=== PATIENT | female | born 1945 | race Caucasian/White ===

== ENCOUNTER → 2017-11-21 | Outpatient (CLI) | payer MEDICARE, BC ==
[~2017-11-21] MED LIST: ESTRADIOL1 MG PO; FLEXERIL PO; IBUPROFEN200 MG PO; KENALOG-4040 MG/1 ML; LEVOTHYROXINE50 MCG PO; LISINOPRIL10 MG PO; MAGNESIUM PO; METOPROLOL TART25 MG PO; POTASSIUM PO; ULTRAM 50MG50 MG PO; VITAMIN B12 PO; VITAMIN D32000 UNIT PO; ZYRTEC-D TABLE1 EACH PO; [UNRECOGNIZED DRUG - OTHER] PO
== END ==
LOC: CARD 08:25
PROVIDERS: ATTEND Internal Medicine
DX: G25.81 Restless legs syndrome (principal)
CPT/HCPCS: 93925

== ENCOUNTER → 2017-11-25 | Day surgery (SDC) | payer MEDICARE, BC ==
[2017-11-22 16:32] LABS: BASOPHILS # (AUTO) 0.1 (0.0-0.1); BASOPHILS % 0.6 % (0.0-1.0); EOSINOPHILS # (AUTO) 0.1 (0.0-0.4); EOSINOPHILS % 0.6 % (0.0-6.0); HEMATOCRIT 42.9 % (34.2-44.1); HEMOGLOBIN 14.6 g/dL (12.0-16.0); LYMPHOCYTES # (AUTO) 2.5 (1.0-3.2); LYMPHOCYTES % 31.3 % (18.0-39.1); MEAN CORPUSCULAR HEMOGLOBIN 33.6 pg (28-32); MEAN CORPUSCULAR VOLUME 98.6 fL (81-99); MONOCYTES # (AUTO) 0.6 (0.2-0.8); MONOCYTES % 7.2 % (4.4-11.3); NEUTROPHILS # (AUTO) 4.8 (2.1-6.9); NEUTROPHILS % 60.1 % (38.7-80.0); PLATELET COUNT 277 x10e3/uL (140-360); RED BLOOD COUNT 4.35 x10e6/uL (3.6-5.1); RED CELL DISTRIBUTION WIDTH 13.4 % (11.7-14.4)
[~2017-11-25] MED LIST changes: +FENTANYL CITRATE/PF 100MCG/2 ML INJ ONE; +HYOSCYAMINE SULFATE 0.5 MG/ML AMP ONE; +LIDOCAINE HCL 2% LOCAL INJ 5 ML SDV VIAL INJ ONE; +MIDAZOLAM HCL 2 MG/2 ML VIAL ONE; +PROPOFOL IV EMULSION 10 MG/ML 50 ML VIAL ONE
[2017-11-25 09:46] LABS: WBC,FECAL (FECAL LACTOFERRIN) NEGATIVE (NEGATIVE)
--- NOTE | 2017-11-25 10:11 | Operative Report ---
DATE OF PROCEDURE: November 25, 2017 REFERRING PHYSICIAN: Dr. Phil Villela. PROCEDURES PERFORMED 1. Esophagogastroduodenoscopy with biopsies. 2. Colonoscopy with polypectomy. INDICATIONS FOR EGD: Upper abdominal pain, nausea, and heartburn. INDICATIONS FOR COLONOSCOPY: Colorectal cancer screening, personal history of colon polyps, and diarrhea. MEDICATION: Patient was done under MAC. Please see anesthesiologist's note. PROCEDURE: With patient in lateral decubitus position, flexible fiberoptic Olympus gastroscope was introduced into the esophagus under direct visualization without any difficulty. There was some patchy erythema noted in distal esophagus. Some focal nodularity and some friability was noted at the GE junction that was biopsied. The scope was then advanced with ease into the stomach and mucosa overlying the antrum and the body revealed some patchy erythema and low-grade to moderate edema, and biopsies were obtained and sent to stain for H. pylori. Pylorus appeared to be of normal contour and shape. It was intubated with ease and the scope was advanced all the way to the 2nd portion of the duodenum. The scope was then withdrawn slowly. Mucosa overlying the proximal 2nd portion and the duodenal bulb appeared to be within normal limits. Biopsies were obtained from the proximal 2nd portion to rule out sprue considering patient's history of diarrhea. The scope was then withdrawn back into the stomach and retroflexed. The mucosa overlying the fundus and the cardia appeared to be within normal limits. The scope was then straightened out. The stomach was decompressed. The scope was subsequently withdrawn. Patient tolerated the procedure well. IMPRESSIONS 1. Distal esophagitis. 2. Focal nodularity and friability, gastroesophageal junction, biopsied. 3. Gastritis, biopsied. Biopsies sent to stain for Helicobacter pylori. 4. Rule out sprue. PLAN 1. Follow up histology. 2. Initiate Protonix 40 mg 1 p.o. q.a.m. a.c. Patient was then turned around. After adequate lubrication of the anal canal, flexible fiberoptic Olympus colonoscope was inserted into the rectum with ease and advanced all the way to the cecum. Mucosa overlying the cecum appeared to be within normal limits. The ileocecal valve was intubated and the scope was advanced into the terminal ileum. Biopsies were obtained. The scope was then withdrawn back into the colon. It was then withdrawn slowly. Mucosa overlying the ascending and the transverse grossly appeared to be within normal limits. Two polyps were hot biopsied from the descending colon. There were some patchy areas of erythema and low-grade edema noted in the left colon. Random biopsies were obtained. Diverticular disease was noted to involve the sigmoid colon. Two polyps were hot biopsied from the sigmoid colon. The rectum appeared to be within normal limits. The scope was then retroflexed into the distal rectum and small internal hemorrhoids were noted, none of which was actively bleeding. The scope was then straightened out. The rectosigmoid area as well as the distal rectal area were decompressed. The scope was subsequently withdrawn after securing an adequate stool specimen that was sent for the appropriate stool studies. Patient tolerated the procedure well. IMPRESSIONS 1. Descending colon polyp times 2, hot biopsied. 2. Mild patchy segmental colitis, left colon. 3. Diverticulosis. 4. Sigmoid colon polyp times 2, hot biopsied. 5. Small internal hemorrhoids, none actively bleeding. PLAN 1. Follow up histology. 2. Follow up stool studies. 3. Initiate VSL #3 DS 1 p.o. daily, Bentyl 10 mg 1 p.o. t.i.d. 4. Patient will need followup colonoscopy in 3 to 5 years. Job#: [id number] CF cc:PHIL VILLELA MD
[2017-11-25 14:52] LABS: C DIFFICILE TOXIN A&B AMP PROB NEGATIVE (NEGATIVE)
--- OUTSIDE RECORDS SUMMARY | 2017-11-27 11:27 | XMS REPORT ---
Author Author [facility] Address Unknown Phone Unavailable Care Team Providers Care Environmental Compliance Manager Name Role Phone MAGNUS VILLELA Unavailable Unavailable Problems This patient has no known problems. Allergies, Adverse Reactions, Alerts This patient has no known allergies or adverse reactions. Medications This patient has no known medications. Results Test Description Test Time Test Comments Text Results Atomic Results Result Comments MRI SPINE LUMBAR WO [place] [address] Patient Name: DEONTE CASTILLO MR #: [id number] : 1945 Age/Sex: 71/F Req #: [id number] [facility] Physician: Ordered by: MAGNUS VILLELA MD Report #: [id number] Location: MRI Room/Bed: Procedure: [id number] MRI/MRI SPINE LUMBAR WO Exam Date: 07/10/17 Exam Time: 0815 REPORT STATUS: Signed Examination: MRI SPINE LUMBAR WITHOUT CONTRAST History: 71-year-old female with low back pain radiating down the right lower extremity. Right lumbar radiculopathy. Comparison studies: None Technique: Sagittal, coronal and axial T2 , sagittal T1 and STIR; axial spin density oblique. Findings: Number of lumbar vertebral bodies: Five. Alignment: Normal lordosis. No scoliosis. Soft tissues: No T2 hyperintense inflammatory changes. Posterior paraspinal soft tissues and muscles: No abnormality. Lower thoracic cord: Normal in signal and morphology. The tip of the conus is at T12-L1. Cauda equina: No masses. No arachnoiditis. Vertebrae: No fractures, infection or neoplasm. Degenerative changes: L1-L2: No abnormalities. L2-L3: No abnormalities. L3-L4: Grade I anterolisthesis without pars defect. Diffuse disc bulge and mild bilateral facet arthropathy. No foraminal or canal stenosis. L4-L5: Asymmetric to the left disc bulge with left central and subarticular disc protrusion and moderate bilateral facet arthropathy with a small left facet joint effusion result in severe left lateral recess narrowing with impingement of the descending left L5 nerve root and mild left foraminal narrowing. No canal stenosis. L5-S1: No abnormalities. IMPRESSION: 1. Degenerative changes at L3-L4 and L4- L5 with severe left lateral recess narrowing at L4-L5 resulting in impingement of the descending left L5 nerve root. 2. No canal or significant foraminal (not moderate or severe) stenosis. Signed by: Dr. Marjan Busby M.D. on 07/11/2017 10:26 AM Dictated By: MARJAN VERDE MD [id number] COPY TO: MAGNUS VILLELA MD
== END | disposition home or self-care (01) ==
LOC: OR 06:03
PROVIDERS: ATTEND Internal Medicine Gastroenterology
DX: Z12.11 Encounter for screening for malignant neoplasm of colon (principal); K63.5 Polyp of colon; K29.70 Gastritis, unspecified, without bleeding; K50.10 Crohn's disease of large intestine without complications; K21.0 Gastro-esophageal reflux disease with esophagitis; K57.30 Diverticulosis of large intestine without perforation or abscess without bleeding; K64.8 Other hemorrhoids; I10 Essential (primary) hypertension; F41.9 Anxiety disorder, unspecified; F32.9 Major depressive disorder, single episode, unspecified; Z01.810 Encounter for preprocedural cardiovascular examination; Z01.812 Encounter for preprocedural laboratory examination
CPT/HCPCS: 36415; 43239; 45384; 83630; 83993; 85025; 87045; 87177; 87328; 87493; 88305; 88312; 93005; J1980; J2001; J2250; 45380

== ENCOUNTER → 2018-01-11 | Outpatient (CLI) | payer MEDICARE, BC ==
[~2018-01-11] MED LIST changes: -FENTANYL CITRATE/PF 100MCG/2 ML INJ ONE; -HYOSCYAMINE SULFATE 0.5 MG/ML AMP ONE; -LIDOCAINE HCL 2% LOCAL INJ 5 ML SDV VIAL INJ ONE; -MIDAZOLAM HCL 2 MG/2 ML VIAL ONE; -PROPOFOL IV EMULSION 10 MG/ML 50 ML VIAL ONE; +SINCALIDE 3 MCG/VIAL INJ ONE
--- NOTE | 2018-01-11 09:24 | Diagnostic Imaging Report ---
PROCEDURE:US ABDOMEN LIMITED COMPARISON:None. INDICATIONS:RUQ Pain TECHNIQUE: Betancourt-scale and color doppler transverse and longitudinal images of the right upper quadrant of the abdomen were obtained. FINDINGS: Liver: 13.5 cm in right mid-clavicular line. Normal parenchymal echogenicity. Well-circumscribed hyperechoic lesion in the right lobe of the liver, near the dome measuring 0.8 x 0.8 x 1 cm. No internal vascularity by color Doppler analysis. Main portal vein: 0.8 cm in caliber. Hepatopedal flow. Gallbladder: Multiple shadowing calculi are identified, without wall thickening or pericholecystic fluid. Common Bile Duct: 0.3 cm in caliber. Sonographic Mccartney's sign: Reported as negative. Right kidney: 9 cm in length. Normal renal cortical echogenicity. No solid masses or hydronephrosis. Pancreas: The visualized portions are unremarkable. Inferior vena cava: Patent Aorta: Non-aneurysmal Ascites: None in the right upper quadrant of the abdomen. CONCLUSION: Cholelithiasis without sonographic evidence of acute cholecystitis. 1 cm hyperechoic lesion in the right lobe of the liver most likely represents a hemangioma. Definitive characterization with MRI or CT of the abdomen with and without contrast (liver mass protocol) is suggested. Dictated by: Alejandro Rosario M.D. on 01/11/2018 at 9:25 Electronically approved by: Alejandro Rosario M.D. on 01/11/2018 at 9:25
--- NOTE | 2018-01-11 20:04 | Diagnostic Imaging Report ---
Hepatobiliary Scan with Gallbladder Ejection Fraction Clinical information: 72 F with chronic RUQ abdominal pain Report: Following intravenous administration of 6.5 millicuries of Tc-99m mebrofenin, dynamic images of the abdomen in the anterior projection were obtained through 50 minutes. Sincalide (CCK analog) 1.7 micrograms was administered intravenously over 30 minutes with additional imaging for determination of gallbladder ejection fraction. Perfusion to the liver is normal. Extraction of tracer from the blood pool by the liver parenchyma is normal. Tracer is seen promptly within the biliary tract. The gallbladder begins to fill by 18 minutes post-injection of tracer and fills adequately. Tracer is seen in the small bowel by 12 minutes. The gallbladder ejection fraction with administration of sincalide is 75% (normal greater than 40%). Impression: 1. Filling of the gallbladder excludes the diagnosis of acute cystic duct obstruction/acute cholecystitis. 2. Normal gallbladder ejection fraction of 75% does not support the clinical diagnosis of chronic cholecystitis/gallbladder dyskinesia. Signed by: Dr. Leigha Nicole M.D. on 01/11/2018 8:00 PM
== END ==
LOC: US 08:26
PROVIDERS: ATTEND Internal Medicine Gastroenterology
DX: R10.11 Right upper quadrant pain (principal)
CPT/HCPCS: 76705; 78227; A9537; J2805

== ENCOUNTER → 2018-01-18 | Outpatient (CLI) | payer MEDICARE, BC ==
[~2018-01-18] MED LIST changes: +GADOBENATE DIMEGLUMINE 1 ML IV ONE; -SINCALIDE 3 MCG/VIAL INJ ONE
[2018-01-18 10:03] LABS: CREATININE, SERUM 1.02 mg/dL (0.57-1.11)
--- NOTE | 2018-01-18 11:54 | Diagnostic Imaging Report ---
PROCEDURE: MRI ABDOMEN WOW TECHNIQUE: Multisequence, multiplanar MRI of the abdomen before and after the intravenous administration of 15 mL of Multihance gadolinium contrast. Axial and coronal T2-weighted images were performed with and without fat suppression. Axial T1 weighted and T1 weighted opposed phase images were obtained. Diffusion weighted images and dynamic, post contrast, 3-D GRE images were also obtained. COMPARISON: None. INDICATIONS: Right-sided abdominal pain FINDINGS: LIVER: No hepatic signal abnormality. There is an 8 mm lesion in segment V/ of the liver) which enhances to a lesser degree than the surrounding liver parenchyma on all phases of contrast administration. There may be mild centripetal filling. This lesion is associated with faint diffusion restriction and is moderately hyperintense on T2 weighted images of the present series 5, image 21). No other focal liver lesions are identified. BILIARY: There are multiple stones in the gallbladder. No gallbladder wall thickening. No ductal dilatation or filling defect. PANCREAS: No mass or ductal dilatation. SPLEEN: No splenomegaly. ADRENALS: No nodules. KIDNEYS: No hydronephrosis or mass in the imaged portion of the kidneys. Tiny nonenhancing lesion in the interpolar region of the right kidney (series 11 image 185) is not well-seen on T2-weighted images and may represent a hemorrhagic or proteinaceous cyst. PERITONEUM / RETROPERITONEUM: No upper abdominal free fluid. LYMPH NODES: No upper abdominal lymphadenopathy. VESSELS: Unremarkable. BONES AND SOFT TISSUES: Unremarkable. IMPRESSION: 1. There is an 8mm lesion in the right hepatic lobe which probably corresponds to the finding on recent ultrasound. It is indeterminate on the basis of this MRI and may represent a benign sclerosing hemangioma. Because of the uncertainty, consider a followup ultrasound in 6 months to ensure stability of this lesion. 2. Cholelithiasis without evidence of cholecystitis or biliary ductal dilatation. Dictated by: Itz Cutler M.D. on 01/18/2018 at 11:55 Electronically approved by: Itz Cutler M.D. on 01/18/2018 at 11:55
== END ==
LOC: MRI 08:28
PROVIDERS: ATTEND Internal Medicine Gastroenterology
DX: R16.0 Hepatomegaly, not elsewhere classified (principal)
CPT/HCPCS: 36415; 74183; 82565; 84520

== ENCOUNTER 2018-07-11 10:00 | Outpatient (RCR) | payer MEDICARE, BC ==
[~2018-07-11 10:00] MED LIST changes: -GADOBENATE DIMEGLUMINE 1 ML IV ONE
== END 2018-07-18 ==
LOC: PT 10:00
PROVIDERS: ATTEND Specialist
DX: M70.61 Trochanteric bursitis, right hip (principal); M25.551 Pain in right hip; M25.651 Stiffness of right hip, not elsewhere classified; M62.81 Muscle weakness (generalized)
CPT/HCPCS: 97110 ×3; 97162; G8978; G8979

== ENCOUNTER 2018-08-06 10:59 | Outpatient (RCR) | payer MEDICARE, BC | END 2018-08-17 | LOC: PT 10:59 | PROVIDERS: ATTEND Specialist | DX: M70.61 Trochanteric bursitis, right hip (principal); M25.551 Pain in right hip; M25.651 Stiffness of right hip, not elsewhere classified; M75.41 Impingement syndrome of right shoulder; M62.81 Muscle weakness (generalized) | CPT/HCPCS: 97110 ×4; G8978; G8979 ==

== ENCOUNTER → 2018-10-17 | Outpatient (CLI) | payer MEDICARE, BC ==
--- NOTE | 2018-10-17 11:01 | Diagnostic Imaging Report ---
TECHNIQUE: Magnetic resonance imaging of the RIGHT SHOULDER was performed WITHOUT injected contrast. COMPARISON: None available. HISTORY: Pain FINDINGS: MUSCLES AND TENDONS: Rotator Cuff: Tendons: Full thickness tear of the supraspinatus tendon with retraction of the fibers approximately 3 cm. Muscles: No focal muscle atrophy. Biceps Tendon: The long head of the biceps tendon is intact and within the intertubercular groove. GLENOHUMERAL JOINT: Moderate joint effusion extending into the subacromial subdeltoid bursa. Glenoid Labrum: Superior labral fraying Articular Cartilage: No focal defect. AC JOINT AND ACROMION: Mild hypertrophic degenerative changes of the acromioclavicular joint. Mild subacromial spurring. BONE: No specific evidence of a focal or infiltrative bone marrow replacing abnormality. No acute fracture. SOFT TISSUES: Otherwise, the soft tissues appear unremarkable. IMPRESSION: Supraspinous full-thickness tear with retraction. No atrophy. Mild subacromial spurring and acromioclavicular arthrosis. Signed by: Dr. Zachary Mack M.D. on 10/17/2018 10:58 AM
== END ==
LOC: MRI 09:36
PROVIDERS: ATTEND Internal Medicine
DX: M25.511 Pain in right shoulder (principal)

== ENCOUNTER 2018-11-13 08:00 | Outpatient (RCR) | payer MEDICARE, BC | END 2018-11-15 | LOC: OT 08:00 | PROVIDERS: ATTEND Specialist | DX: S46.021D Laceration of muscle(s) and tendon(s) of the rotator cuff of right shoulder, subsequent encounter (principal); M25.511 Pain in right shoulder; R53.1 Weakness | CPT/HCPCS: 97139 ==

== ENCOUNTER 2018-11-22 09:05 | Outpatient (RCR) | payer MEDICARE, BC | END 2018-12-16 | LOC: OT 09:05 | PROVIDERS: ATTEND Specialist | DX: S46.021D Laceration of muscle(s) and tendon(s) of the rotator cuff of right shoulder, subsequent encounter (principal); M25.511 Pain in right shoulder; R53.1 Weakness ==

== ENCOUNTER → 2019-03-20 | Outpatient (CLI) | payer MEDICARE, BC ==
[~2019-03-20] MED LIST changes: +GADOBENATE DIMEGLUMINE 1 ML IV ONE; +SODIUM CHLORIDE 0.9% 100 ML 100 ML ONE
[2019-03-20 14:01] LABS: CREATININE, SERUM 1.14 mg/dL (0.57-1.11)
--- NOTE | 2019-03-20 17:33 | Diagnostic Imaging Report ---
EXAM: MR Abdomen WITHOUT and WITH Contrast INDICATION: ^LIVER LESION COMPARISON: MR abdomen 01/18/2018. TECHNIQUE: Multiplanar and multisequence imaging was performed of the abdomen without and with contrast. T1-weighted, T2-weighted images, T1-weighted in and [id number], and Diffusion weighted images. Dynamic, post gadolinium T1-weighted spoiled gradient echo scans. IV Contrast: 15 mL of MultiHance gadolinium Oral Contrast: None Medications: None COMPLICATIONS: None FINDINGS: LOWER THORAX: Unremarkable. HEPATOBILIARY: Stable 0.7 cm mildly T2 hyperintense lesion in segment 5/6 of the liver (series 5, image 17). Mild enhancement. On subsequent phases this lesion becomes progressively less well visualized and likely represents a hemangioma. No biliary ductal dilation. Common bile duct measures 0.4 cm. GALLBLADDER: There are blooming artifacts at the gallbladder fossa, consistent with cholecystectomy clips. SPLEEN: No splenomegaly. PANCREAS: No focal masses or ductal dilatation. ADRENALS: No adrenal nodules KIDNEYS/URETERS: Kidneys enhance symmetrically. No hydronephrosis. No cystic or solid mass lesions. No stones. GI TRACT: No abnormal distention, wall thickening, or evidence of bowel obstruction. Appendix is not clearly identified. There is however no fat stranding or adenopathy in the right lower quadrant to suggest appendicitis. LYMPH NODES: No lymphadenopathy. VESSELS: Unremarkable. PERITONEUM / RETROPERITONEUM: No free air or fluid. BONES: Unremarkable. SOFT TISSUES: Previous postsurgical changes along the anterior abdominal wall. IMPRESSION: 1. Stable 0.7 cm lesion in the right hepatic lobe, likely hemangioma. 2. Cholecystectomy clips. Signed by: Dr. Samir Streeter M.D. on 03/20/2019 5:30 PM
== END ==
LOC: MRI 13:07
PROVIDERS: ATTEND Internal Medicine Gastroenterology
DX: K76.9 Liver disease, unspecified (principal)
CPT/HCPCS: 36415; 74183; 82565; 84520

== ENCOUNTER 2019-04-01 08:06 | Emergency (ER) | payer MEDICARE, BC ==
[~2019-04-01] VITALS: Ht 165.1 cm; Wt 73.5 kg
[~2019-04-01 08:06] MED LIST changes: -GADOBENATE DIMEGLUMINE 1 ML IV ONE; -SODIUM CHLORIDE 0.9% 100 ML 100 ML ONE
[2019-04-01] MEDS ORDERED: SODIUM CHLORIDE 0.9% 1000ML 1,000 ML IV SCH (08:15)
--- OUTSIDE RECORDS SUMMARY | 2019-04-01 08:27 | XMS REPORT | Continuity of Care Document ---
Author Author [email or web address] Address Unknown Phone Unavailable Care Team Providers Care Vocational Ed Instructor Name Role Phone Meilele Information Vital Access Unavailable Unavailable Problems Problem Status Onset Date Classification Date Reported Comments Source BRADYCARDIA Active 10/17/2016 [facility] HYPERTENSIVE URGENCY, BIGEMINY Active 10/17/2016 [facility] Suicidal ideation Resolved Problem 10/23/2016 [facility] Bigeminy Resolved Problem 10/23/2016 [facility] HYPERTENSIVE URGENCY Active [facility] CARDIAC ARRHYTHMIA, UNSPECIFIED Active [facility] Medications Medication Details Route Status Patient Instructions Ordering Provider Order Date Source 24 HR Metoprolol Tartrate 25 MG Extended Release Tablet [Toprol] 25 mg, 1 tab, Route: PO, Drug form: ERTAB, Daily, Start date: 10/20/16 9:00:00 [employer], Duration: 30 day, Stop date: 11/18/16 9:00:00 CSTNotes: (Same as: Toprol XL) Do Not Crush Inactive 10/20/2016 [facility] Lisinopril 20 mg, 1 tab, Route: PO, Drug form: TAB, Daily, Dosing Weight 79.091, kg, Start date: 10/20/16 9:00:00 [employer], Duration: 30 day, Stop date: 11/18/16 9:00:00 CSTNotes: (Same as: Prinivil, Zestril) Inactive 10/20/2016 [facility] Thyroxine 25 microgram, 1 tab, Route: PO, Drug form: TAB, Q630AM, Dosing Weight 79.091, kg, Start date: 10/20/16 6:30:00 [employer], Duration: 30 day, Stop date: 11/18/16 6:30:00 CSTNotes: Take 1 hour before or 2 hours after meal; Enteral feeds may interefere with the absorption of this medication. (Same as:Levothroid) Inactive 10/20/2016 [facility] metoprolol tartrate 25 mg oral tablet 25 mg=1 tab, PO, Bedtime, 0 Refill(s) Active 10/20/2016 [facility] conjugated estrogens 0 Refill(s) Active 10/20/2016 [facility] levothyroxine 25 mcg (0.025 mg) oral tablet 25 microgram=1 tab, PO, Daily, 0 Refill(s) Active 10/20/2016 [facility] lisinopril 20 mg oral tablet 20 mg=1 tab, PO, Daily, 0 Refill(s) Active 10/20/2016 [facility] Hydralazine 10 mg, 0.5 mL, Route: IVP, Drug form: INJ, Q2H, Dosing Weight 95.455, kg, PRN Hypertension, Start date: 10/20/16 2:03:00 [employer], Duration: 30 day, Stop date: 11/19/16 2:02:00 CSTNotes: (Same as: Apresol ine) Push over 5 minutes Inactive 10/20/2016 [facility] Ondansetron 4 mg, 2 mL, Route: IVP, Drug form: INJ, Q6H, Dosing Weight 95.455, kg, PRN Nausea & Vomiting, Start date: 10/20/16 2:00:00 [employer], Duration: 30 day, Stop date: 11/19/16 1:59:00 CSTNotes: (Same as: Jessicaan) MEDICATION WASTE Product Size: 4 mg Product Wasted: ___ mg Inactive 10/20/2016 [facility] Acetaminophen 650 mg, 2 tab, Route: PO, Drug form: TAB, Q4H, Dosing Weight 95.455, kg, PRN Pain 1-3/Temp > 100.4 F, Start date: 10/20/16 2:00:00 [employer], Duration: 30 day, Stop date: 11/19/16 1:59:00 CSTNotes: Do not exceed 4 gm/day. (Same as: Tylenol) Inactive 10/20/2016 [facility] Sodium Chloride 0.9% IV 250 mL, Route: IVPB, Start date: 10/19/16 22:25:00 [employer]LE [employer], Duration: 30 day, Stop date: 11/18/16 22:24:00 [employer]LE [employer], PRN Line Flush No Longer Active 10/20/2016 [facility] BD Normal Saline Flush 10 mL, Route: IVP, Drug Form: INJ, PRN, PRN Line Flush, Start date: 10/19/16 22:25:00 [employer], Duration: 30 day, Stop date: 11/18/16 22:24:00 CSTNotes: (Same as: BD Posiflush) No Longer Active 10/20/2016 [facility] Acetaminophen 650 mg, 2 tab, Route: PO, Drug form: TAB, ONCE, Dosing Weight 95.455, kg, Priority: STAT, Start date: 10/19/16 22:22:00 [employer]LE [employer]CH[employer], Stop date: 10/19/16 22:22:00 CSTNotes: Do not exceed 4 gm/day. (Same as: Tylenol) Inactive 10/20/2016 [facility] Saline Flush 0.9% 10 mL, Route: IVP, Drug Form: INJ, Dosing Weight 95.455, kg, PRN, PRN Line Flush, Start date: 10/19/16 22:22:00 [employer]LE [employer], Duration: 30 day, Stop date: 11/18/16 22:21:00 [employer]ACLE [employer] ARCH[employer]ECT Inactive 10/20/2016 [facility] Allergies, Adverse Reactions, Alerts No Known Medication Allergies Immunizations No Data Provided for This Section Results Order Name Results Value Reference Range Date Interpretation Comments Source CHEM PANEL Bili Total 0.7 0.2 - 1.3 10/20/2016 [facility] CHEM PANEL Alk Phos 40 39 - 136 10/20/2016 [facility] CHEM PANEL B/C Ratio 13 6 - 25 10/20/2016 [facility] CHEM PANEL AGAP 13.7 10.0 - 20.0 10/20/2016 [facility] CHEM PANEL eGFR 51 10/20/2016 Result Comment: The eGFR is calculated using the CKD-EPI formula. In most young, healthy individuals the eGFR will be >90 mL/min/1.73m2. The eGFR declines with age. An eGFR of 60-89 may be normal in some populations, particularly the elderly, for whom the CKD-EPI formula has not been extensively validated. Use of the eGFR is not recommended in the following populations:

Individuals with unstable creatinine concentrations, including patients and those with serious co-morbid conditions.

Patients with extremes in muscle mass or diet.

The data above are obtained from the National Kidney Disease Education Program (NKDEP) which additionally recommends that when the eGFR is used in patients with extremes of body mass index for purposes of drug dosing, the eGFR should be multiplied by the estimated BMI. [facility] CHEM PANEL Globulin 2.6 2.7 - 4.2 10/20/2016 [facility] CHEM PANEL A/G Ratio 1.3 0.7 - 1.6 10/20/2016 [facility] CHEM PANEL AST 18 0 - 37 10/20/2016 [facility] CHEM PANEL ALT 25 0 - 65 10/20/2016 [facility] CHEM PANEL Albumin Lvl 3.5 3.5 - 5.0 10/20/2016 [facility] CHEM PANEL CO2 24 24 - 32 10/20/2016 [facility] CHEM PANEL Calcium Lvl 8.7 8.5 - 10.5 10/20/2016 [facility] CHEM PANEL Potassium Lvl 3.7 3.5 - 5.1 10/20/2016 [facility] CHEM PANEL Total Protein 6.1 6.4 - 8.4 10/20/2016 [facility] CHEM PANEL Chloride Lvl 110 95 - 109 10/20/2016 [facility] CHEM PANEL Glucose Lvl 91 70 - 99 10/20/2016 [facility] CHEM PANEL BUN 14 7 - 22 10/20/2016 [facility] CHEM PANEL Sodium Lvl 144 135 - 145 10/20/2016 [facility] CHEM PANEL Creatinine Lvl 1.10 0.50 - 1.40 10/20/2016 [facility] CARDIAC ENZYMES Total CK 411 12 - 191 10/20/2016 [facility] CARDIAC ENZYMES CK MB 1.8 0.5 - 3.6 10/20/2016 [facility] CARDIAC ENZYMES Troponin-I <0.02 0.00 - 0.40 10/20/2016 [facility] CARDIAC ENZYMES CK MB Index 0.4 0.0 - 2.5 10/20/2016 [facility] CHEM PANEL eGFR 45 10/20/2016 Result Comment: The eGFR is calculated using the CKD-EPI formula. In most young, healthy individuals the eGFR will be >90 mL/min/1.73m2. The eGFR declines with age. An eGFR of 60-89 may be normal in some populations, particularly the elderly, for whom the CKD-EPI formula has not been extensively validated. Use of the eGFR is not recommended in the following populations:

Individuals with unstable creatinine concentrations, including patients and those with serious co-morbid conditions.

Patients with extremes in muscle mass or diet.

The data above are obtained from the National Kidney Disease Education Program (NKDEP) which additionally recommends that when the eGFR is used in patients with extremes of body mass index for purposes of drug dosing, the eGFR should be multiplied by the estimated BMI. [facility] CHEM PANEL Glucose Lvl 103 70 - 99 10/20/2016 [facility] CHEM PANEL BUN 15 7 - 22 10/20/2016 [facility] CHEM PANEL Chloride Lvl 108 95 - 109 10/20/2016 [facility] CHEM PANEL Potassium Lvl 3.9 3.5 - 5.1 10/20/2016 [facility] CHEM PANEL CO2 23 24 - 32 10/20/2016 [facility] CHEM PANEL Sodium Lvl 142 135 - 145 10/20/2016 [facility] CHEM PANEL Creatinine Lvl 1.23 0.50 - 1.40 10/20/2016 [facility] CHEM PANEL AGAP 14.9 10.0 - 20.0 10/20/2016 [facility] CHEM [facility] Calcium Lvl 8.9 8.5 - 10.5 10/20/2016 [facility] INR 0.96 0.85 - 1.17 10/20/2016 [facility] PT 13.0 12.0 - 14.7 10/20/2016 [facility] PTT 25.6 22.9 - 35.8 10/20/2016 [facility] MCV 96.6 80.0 - 98.0 10/20/2016 [facility] MCH 32.3 27.0 - 31.0 10/20/2016 [facility] RDW 13.7 11.5 - 14.5 10/20/2016 [facility] MPV 9.9 7.4 - 10.4 10/20/2016 [facility] Platelet 209 133 - 450 10/20/2016 [facility] MCHC 33.4 32.0 - 36.0 10/20/2016 [facility] WBC 7.8 3.7 - 10.4 10/20/2016 [facility] Hgb 13.8 12.0 - 16.0 10/20/2016 [facility] RBC 4.28 4.20 - 5.40 10/20/2016 [facility] Hct 41.3 36.0 - 48.0 10/20/2016 [facility] Segs 52.1 45.0 - 75.0 10/20/2016 [facility] Lymphocytes 37.5 20.0 - 40.0 10/20/2016 [facility] Basophils 0.9 0.0 - 1.0 10/20/2016 [facility] HEMATOLOGY Monocytes 8.8 2.0 - 12.0 10/20/2016 [facility] HEMATOLOGY Segs-Bands # 4.1 1.5 - 8.1 10/20/2016 [facility] HEMATOLOGY Eosinophils 0.7 0.0 - 4.0 10/20/2016 [facility] HEMATOLOGY Monocytes # 0.7 0.0 - 0.8 10/20/2016 [facility] HEMATOLOGY Eosinophils # 0.1 0.0 - 0.5 10/20/2016 [facility] HEMATOLOGY Lymphocytes # 2.9 1.0 - 5.5 10/20/2016 [facility] HEMATOLOGY Basophils # 0.1 0.0 - 0.2 10/20/2016 [facility] Pathology Reports No Data Provided for This Section Diagnostic Reports Report Value Date Source Brain wo contrast CT I have reviewed this examination and concur with the interpretation. Study: CT head without contrast. History: Headaches Comments: CT head was obtained from the vertex to the skull base utilizing multiple axial images without intravenous contrast. Total exam DLP is 512 mgy-cm. No intracranial hemorrhage, mass effect or midline shift. Normal joseph-white matter differentiation. Intracranial ventricles and subarachnoid spaces are within normal limits. No depressed skull bone fractures. Visualized paranasal sinuses show fluid level in the left maxillary sinus suggesting acute sinusitis. Impression: No intracranial hemorrhage, mass effect or midline shift. 10/20/2016 [facility] Chest 1view DX Study: Chest 1view DX Clinical Indication: Dyspnea Comparison: Chest x-ray from 06/02/2010 FINDINGS: The cardiac silhouette is normal in size. The lungs are clear and without consolidation or congestion. There is mild left basilar scarring. No pleural effusion or pneumothorax is seen. The osseous structures are unremarkable. IMPRESSION: No acute cardiopulmonary disease. SL: CONCHITA 10/19/2016 [facility] Consultation Notes No Data Provided for This Section Discharge Summaries No Data Provided for This Section History and Physicals No Data Provided for This Section Vital Signs Vital Sign Value Date Comments Source Weight 79.091 10/20/2016 [facility] BMI Calculated 29.02 10/20/2016 [facility] Height 165.1 cm 10/20/2016 [facility] Temperature Oral (F) 98.2 F 10/20/2016 [facility] Systolic (mm Hg) 145 10/20/2016 [facility] Diastolic (mm Hg) 88 10/20/2016 [facility] Heart Rate 63 10/20/2016 [facility] Respitory Rate 18 10/20/2016 [facility] Respitory Rate 18 10/20/2016 [facility] Systolic (mm Hg) 157 10/20/2016 [facility] Diastolic (mm Hg) 100 10/20/2016 [facility] Temperature Oral (F) 98.4 F 10/20/2016 [facility] Heart Rate 102 10/20/2016 [facility] Heart Rate 59 10/20/2016 [facility] Temperature Oral (F) 97.7 F 10/20/2016 [facility] Respitory Rate 18 10/20/2016 [facility] Systolic (mm Hg) 139 10/20/2016 [facility] Diastolic (mm Hg) 80 10/20/2016 [facility] Weight 79.091 10/20/2016 [facility] Height 165.1 cm 10/20/2016 [facility] BMI Calculated 29.02 10/20/2016 [facility] Weight 95.455 10/20/2016 [facility] BMI Calculated 32 10/20/2016 [facility] Height 172.72 cm 10/20/2016 [facility] Encounters Location Location Details Encounter Type Encounter Number Reason For Visit Attending Provider ADM Date DC Date Status Source [facility] Observation [id number] Paul Bolanos 10/20/2016 10/20/2016 [facility] Procedures No Data Provided for This Section Assessment and Plan No Data Provided for This Section Plan of Care No Data Provided for This Section Social History Social History Date Source Social History TypeResponse Alcohol Current, Type Wine. Frequency: Several times per day. Previous treatment: None. Smoking Status Former smoker; Type: Chewing tobacco; Ready to change: Yes; Exposure to Tobacco Smoke None; Cigarette Smoking Last 365 Days Yes; Reg Smoking Cessation Counseling No 10/20/2016 [facility] Family History No Data Provided for This Section Advance Directives No Data Provided for This Section Functional Status No Data Provided for This Section
[2019-04-01] MEDS ORDERED: METOCLOPRAMIDE HCL 10 MG/2ML VIAL IV ONE (08:30)
--- NOTE | 2019-04-01 08:30 | NUR ---
LEFT AC 20 GUAGE IV INFILTRATED. DC'D. RESTARTED IV IN RIGHT WRIST
[2019-04-01] MEDS ORDERED: DIPHENHYDRAMINE HCL INJ 50 MG/ML VIAL IV ONE (09:00)
--- NOTE | 2019-04-01 09:24 | Diagnostic Imaging Report ---
Exam: Head CT without contrast History: Headache, confusion Comparison studies: None Technique: Axial images were obtained from the skull base to the vertex. Coronal and sagittal images reconstructed from the axial data. Dose modulation, iterative reconstruction, and/or weight based adjustment of the mA/kV was utilized to reduce the radiation dose to as low as reasonably achievable. Radiation dose: Total DLP: 921 mGy*cm. Estimated effective dose: DLP x 0.015 Intravenous contrast: None Findings: Scalp: No abnormalities. Bones: No fractures. Incidental, nonaggressive-appearing, not as 11 mm lucent focus in the right frontal calvarium, possibly hemangioma. Lucent focus in the posterior midline occipital calvarium is most likely an arachnoid granulation. Brain sulci: Mildly prominent. Ventricles: Normal in size and configuration. No hydrocephalus. Extra-axial spaces: No masses, no fluid collection. Parenchyma: A few subtle hypodensities in the supratentorial white matter are nonspecific but most compatible with chronic microvascular ischemic changes. No masses, acute hemorrhage, or acute cortical insults. Sellar/suprasellar region: No abnormalities. Craniocervical junction: Patent foramen magnum. No Chiari one malformation. Included paranasal sinuses: Left maxillary sinus is partially opacified with peripheral mucosal thickening. Incidental findings: Lens replacements for previous cataract surgery. Atherosclerotic calcifications in the carotid siphons an in the right intradural vertebral artery. IMPRESSION: No acute intracranial abnormalities. Chronic findings: 1. Mild generalized parenchymal volume loss. 2. Minimal microvascular ischemic changes. Signed by: Dr. Alejandro Tracy M.D. on 04/01/2019 9:20 AM
[2019-04-01 10:02] LABS: INR 0.84
[2019-04-01 10:03] LABS: BASOPHILS % 0.4 % (0.0-1.0); EOSINOPHILS # (AUTO) 0.1 (0.0-0.4); EOSINOPHILS % 1.8 % (0.0-6.0); HEMOGLOBIN 12.5 g/dL (12.0-16.0); LYMPHOCYTES # (AUTO) 1.9 (1.0-3.2); LYMPHOCYTES % 34.8 % (18.0-39.1); MEAN CORPUSCULAR HEMOGLOBIN 33.6 pg (28-32); MEAN CORPUSCULAR HGB CONC 33.8 g/dL (31-35); MEAN CORPUSCULAR VOLUME 99.5 fL (81-99); MONOCYTES # (AUTO) 0.5 (0.2-0.8); MONOCYTES % 9.6 % (4.4-11.3); NEUTROPHILS # (AUTO) 2.9 (2.1-6.9); PARTIAL THROMBOPLASTIN TIME 33.5 seconds (23.8-35.5); PLATELET COUNT 193 x10e3/uL (140-360); RED BLOOD COUNT 3.72 x10e6/uL (3.6-5.1); RED CELL DISTRIBUTION WIDTH 13.2 % (11.7-14.4)
[2019-04-01 10:12] LABS: ALBUMIN/GLOBULIN RATIO 1.2 (0.8-2.0); ANION GAP 12.8 mmol/L (8-16); CALCIUM 8.1 mg/dL (8.4-10.2); CREATININE, SERUM 0.99 mg/dL (0.57-1.11); POTASSIUM 3.8 mmol/L (3.5-5.1)
--- NOTE | 2019-04-01 10:21 | NUR ---
iv in right wrist dc'd and restarted in right ac 20 g due to need for contrast
[2019-04-01] MEDS ORDERED: GADOBENATE DIMEGLUMINE 1 ML IV ONE (11:45)
--- NOTE | 2019-04-01 11:52 | Diagnostic Imaging Report ---
Intracranial CT angiogram History: Hypertension, headache, confusion, Comparison studies:Head CT from the same date (03/30/2019). Technique: Axial images were obtained from the skull base to the vertex. Coronal and sagittal images reconstructed from the axial data. Additional multiplanar MIP and volume rendered 3-D reformatted images of the [place] were provided. Dose modulation, iterative reconstruction, and/or weight based adjustment of the mA/kV was utilized to reduce the radiation dose to as low as reasonably achievable. Intravenous contrast: 100 cc of Omnipaque 300. Findings: No arterial vascular malformation identified. Anterior circulation: Internal carotid arteries: There is scattered calcified plaque in the distal cavernous and paraophthalmic segments do not result in significant stenosis. There is 1 mm infundibular dilatation regional to the right P-comm origin. Anterior cerebral arteries. Patent, no proximal branch occlusion or stenosis Middle cerebral arteries: Patent, no proximal branch occlusion or stenosis. Posterior circulation: Vertebral arteries: Patent bilaterally. Minimal nonstenotic calcified plaque near the dural insertion of the right intradural V4 segment is seen on the previous noncontrast head CT. Basilar artery: Patent, no stenosis. Posterior cerebral arteries: Patent, no proximal branch occlusion or stenosis. Anatomical variants: Anterior communicating artery :Visualized. Posterior communicating arteries: Hypoplastic, barium visualized on the right. Not visualized on the left. Vertebral arteries: Right intradural vertebral artery is dominant. Incidental findings: Lens replacements for previous scattered surgery. Inflammatory changes in the left maxillary sinus which is partially opacified. IMPRESSION: 1. No acute intracranial arterial abnormalities. 2. Specifically, no major branch occlusion or significant stenosis. Signed by: Dr. Alejandro Tracy M.D. on 04/01/2019 12:50 PM
[2019-04-01 12:02] VITALS: BP 141/74
--- NOTE | 2019-04-01 13:39 | Diagnostic Imaging Report ---
History: Headache, confusion Comparison studies: Head CT and intracranial CTA from the same date (04/01/2019) Technique: Precontrast 3-D T1 with axial, coronal and sagittal reformats and axial DWI, axial T2 FLAIR, axial T2*GRE, axial T2 and postcontrast axial coronal T1 FS. Intravenous contrast: 15 cc of MultiHance Findings: Scalp: No abnormal signal. No masses. Bone marrow: Incidental 11 mm lucent focus seen on the prior CT corresponds to a T1 hyperintense lesion centered in the intradiploic space which is most likely an incidental hemangioma. Brain sulci: Mildly prominent. Ventricles: Normal in size. No hydrocephalus. Extra axial spaces: No mass, no fluid collection. Parenchyma: No mass, hemorrhage or acute ischemia. A few scattered T2 FLAIR hyperintense foci in the supratentorial white matter are nonspecific but most compatible with chronic microvascular ischemic changes. No enhancing abnormalities. There may be a small incidental left frontal developmental venous anomaly. Suprasellar region: Partially CSF filled sella, a nonspecific finding. Craniocervical junction: Patent foramen magnum. No Chiari one malformation. Vessels: Normal flow-voids in the arteries and sinuses. Incidental findings: Lens replacements for previous cataract surgery. Inflammatory changes in the left maxillary sinus with mucosal thickening and retention cyst with inspissated proteinaceous secretions. IMPRESSION: 1. No acute intracranial abnormalities. 2. Mild supratentorial chronic microvascular ischemic changes. Signed by: Dr. Alejandro Tracy M.D. on 04/01/2019 1:36 PM
[2019-04-01] MEDS ORDERED: SODIUM CHLORIDE 0.9% 100 ML 100 ML ONE (14:49)
[2019-04-01] MEDS ORDERED: IOPAMIDOL 370 MG/ML 200 ML INFUS..BTL INJ ONE (14:50)
== END 2019-04-01 12:47 | disposition home or self-care (01) ==
LOC: ER 08:06
DX: G44.89 Other headache syndrome (principal)
CPT/HCPCS: 36415; 70450; 70496; 70553; 80053; 85025; 85610; 85730; 99284; J1200; J2765; J7030; Q9967

== ENCOUNTER → 2020-09-30 | Outpatient (CLI) | payer MEDICARE, BC ==
[~2020-09-30] MED LIST changes: +IOPAMIDOL 370 MG/ML 200 ML INFUS..BTL INJ ONE; +SODIUM CHLORIDE 0.9% 50ML 50 ML ONE
[2020-09-30 08:51] LABS: CREATININE, SERUM 1.13 mg/dL (0.57-1.11)
== END ==
LOC: CT 07:54
PROVIDERS: ATTEND Internal Medicine Gastroenterology
DX: R10.9 Unspecified abdominal pain (principal); K57.30 Diverticulosis of large intestine without perforation or abscess without bleeding; K76.9 Liver disease, unspecified
CPT/HCPCS: 36415; 74177; 82565; 84520; Q9967

== ENCOUNTER → 2020-10-08 | Outpatient (CLI) | payer MEDICARE, BC ==
[~2020-10-08] MED LIST changes: -IOPAMIDOL 370 MG/ML 200 ML INFUS..BTL INJ ONE; -SODIUM CHLORIDE 0.9% 50ML 50 ML ONE
== END ==
LOC: MRI 08:25
PROVIDERS: ATTEND Internal Medicine
DX: M25.511 Pain in right shoulder (principal)

== ENCOUNTER → 2020-10-23 | Outpatient (CLI) | payer MEDICARE, BC | LOC: MRI 09:45 | PROVIDERS: ATTEND Student in an Organized Health Care Education/Training Program | DX: G31.84 Mild cognitive impairment of uncertain or unknown etiology (principal) | CPT/HCPCS: 70551 ==

== ENCOUNTER → 2022-10-20 | Outpatient (CLI) | payer MEDICARE, BC ==
[~2022-10-20] MED LIST changes: +CYMBALTA30 MG PO; +WELLBUTRIN XL150 MG PO; +[UNRECOGNIZED DRUG - OTHER] PO
== END ==
LOC: MRI 10:53
PROVIDERS: ATTEND Internal Medicine
DX: M54.31 Sciatica, right side (principal)
CPT/HCPCS: 72148

== ENCOUNTER 2023-01-06 18:52 | Emergency (ER) | payer MEDICARE, BC ==
[~2023-01-06] VITALS: Ht 165.1 cm; Wt 73.5 kg
[2023-01-06] MEDS ORDERED: ONDANSETRON HCL INJ 2MG/ML 2ML 2 MG/ML VIAL IV STA (18:56)
[2023-01-06] MEDS ORDERED: KETOROLAC TROMETHAMINE 30 MG/ML VIAL IV ONE (19:00)
[2023-01-06] MEDS ORDERED: DIPHENHYDRAMINE HCL 25 MG CAP PO ONE (19:00)
[2023-01-06] MEDS ORDERED: DEXAMETHASONE SOD PHOS 10 MG/1 ML VIAL IV ONE (19:00)
[2023-01-06] MEDS ORDERED: IOPAMIDOL 370 MG/ML 100 ML INFUS..BTL INJ ONE (19:54)
[2023-01-06 19:57] LABS: BASOPHILS % 0.5 % (0.0-1.0); EOSINOPHILS # (AUTO) 0.1 (0.0-0.4); EOSINOPHILS % 3.3 % (0.0-6.0); HEMATOCRIT 37.2 % (34.2-44.1); HEMOGLOBIN 12.3 g/dL (12.0-16.0); LYMPHOCYTES # (AUTO) 1.1 (1.0-3.2); LYMPHOCYTES % 26.6 % (18.0-39.1); MEAN CORPUSCULAR HEMOGLOBIN 31.8 pg (28-32); MEAN CORPUSCULAR HGB CONC 33.1 g/dL (31-35); MEAN CORPUSCULAR VOLUME 96.1 fL (81-99); MONOCYTES # (AUTO) 0.4 (0.2-0.8); MONOCYTES % 10.3 % (4.4-11.3); NEUTROPHILS # (AUTO) 2.3 (2.1-6.9); NEUTROPHILS % 58.5 % (38.7-80.0); PLATELET COUNT 166 x10e3/uL (140-360); RED BLOOD COUNT 3.87 x10e6/uL (3.6-5.1); RED CELL DISTRIBUTION WIDTH 14.4 % (11.7-14.4)
[2023-01-06] MEDS ORDERED: SODIUM CHLORIDE 0.9% 1000ML 1,000 ML IV ONE (20:00)
[2023-01-06] MEDS ORDERED: ONDANSETRON HCL INJ 2MG/ML 2ML 2 MG/ML VIAL IV PRN (20:00)
[2023-01-06] MEDS ORDERED: Morphine 4mg INJECTION 4 MG/ML INJ IV PRN (20:00)
[2023-01-06 20:25] LABS: ALANINE AMINOTRANSFERASE 15 IU/L (0-55); ALBUMIN/GLOBULIN RATIO 1.3 (0.8-2.0); ALKALINE PHOSPHATASE 42 IU/L (40-150); ANION GAP 11.8 mmol/L (8-16); BLOOD UREA NITROGEN 15 mg/dL (7-26); BUN/CREATININE RATIO 12 (6-25); CARBON DIOXIDE 24 mmol/L (22-29); CHLORIDE 102 mmol/L (98-107); CREATININE, SERUM 1.25 mg/dL (0.57-1.11); GLUCOSE 121 mg/dL (74-118); POTASSIUM 3.8 mmol/L (3.5-5.1); SODIUM 134 mmol/L (136-145)
[2023-01-06] MEDS ORDERED: ACETAMINOPHEN 325 MG TAB PO ONE (21:00)
[2023-01-06] MEDS ORDERED: METOCLOPRAMIDE HCL 10 MG/2ML VIAL IV ONE (21:00)
[2023-01-06 23:25] VITALS: O2SAT 99
== END 2023-01-06 23:25 | disposition home or self-care (01) ==
LOC: ER 18:59
DX: G43.909 Migraine, unspecified, not intractable, without status migrainosus (principal); I10 Essential (primary) hypertension; E03.9 Hypothyroidism, unspecified; I25.10 Atherosclerotic heart disease of native coronary artery without angina pectoris; K21.9 Gastro-esophageal reflux disease without esophagitis; F41.9 Anxiety disorder, unspecified; M54.9 Dorsalgia, unspecified; G89.29 Other chronic pain; Z20.822 Contact with and (suspected) exposure to COVID-19
CPT/HCPCS: 0223U; 36415; 70450; 70496; 70498; 80053; 82948; 84484; 85025; 93005; 99284; J2405; J2765; J7030; Q9967

== ENCOUNTER 2024-03-08 12:02 | Outpatient (RCR) | payer MEDICARE, BC | END 2024-03-17 | LOC: PT 12:02 | PROVIDERS: ATTEND Specialist | DX: M75.102 Unspecified rotator cuff tear or rupture of left shoulder, not specified as traumatic (principal); M62.81 Muscle weakness (generalized); M25.512 Pain in left shoulder; M25.612 Stiffness of left shoulder, not elsewhere classified ==

== ENCOUNTER 2024-03-18 10:20 | Outpatient (RCR) | payer MEDICARE, BC | END 2024-04-17 | LOC: PT 10:20 | PROVIDERS: ATTEND Specialist | DX: M75.102 Unspecified rotator cuff tear or rupture of left shoulder, not specified as traumatic (principal); M62.81 Muscle weakness (generalized); M25.512 Pain in left shoulder; M25.612 Stiffness of left shoulder, not elsewhere classified ==

== ENCOUNTER → 2024-06-20 | Outpatient (REF) | payer MEDICARE, BC | LOC: DX 08:36 | PROVIDERS: ATTEND Nurse Practitioner Primary Care | DX: Z13.820 Encounter for screening for osteoporosis (principal); N95.9 Unspecified menopausal and perimenopausal disorder | CPT/HCPCS: 77080 ==

== ENCOUNTER → 2024-12-05 | Outpatient (REF) | payer MEDICARE, BC | LOC: MAMMO 11:54 | PROVIDERS: ATTEND Internal Medicine | DX: Z12.31 Encounter for screening mammogram for malignant neoplasm of breast (principal) | CPT/HCPCS: 77067 ==